=== PATIENT | male | born 1940 | race Caucasian/White ===

== ENCOUNTER 2021-01-14 14:50 | Emergency (ER) | payer MEDICARE ==
[2021-01-14 16:36] LABS: BASOPHIL 0.2 % (0-2); EOSINOPHIL 0 % (0-7); HCT 32.6 % (42.0-52.0); HGB 11.1 g/dl (13.2-18.0); MCH 32.4 pg (25.0-31.0); MPV 10.3 fL (6.0-9.5); NEUTROPHIL 61.3 % (41-80); NRBC 0; PLT 127 K/uL (150-400); RBC 3.43 M/uL (4.70-6.00); RDW 13.1 % (11.5-14.0); WBC 5.5 K/uL (4.0-10.5)
[2021-01-14 16:38] LABS: INR 1.11 (0.9-1.2); PROTHROMBIN TIME 13.7 SECONDS (11.8-13.4)
[2021-01-14 16:43] LABS: LYMPHOCYTE 36.3 % (15-48)
[2021-01-14 16:46] LABS: ALBUMIN 2.7 g/dL (3.4-5.0); BILIRUBIN - TOTAL 0.5 mg/dL (0.2-1.0); BUN/CREAT RATIO (CALC) 14.4 RATIO; CREATININE 0.97 mg/dL (0.67-1.17); GLOBULIN (CALCULATION) 4.1 g/dL; POTASSIUM 4.1 mmol/L (3.5-5.1); TOTAL PROTEIN 6.8 g/dL (6.4-8.2)
== END 2021-01-14 21:37 | disposition home or self-care (01) ==
LOC: FER 14:50
PROVIDERS: Physician Assistant
DX: U07.1 COVID-19 (principal)
CPT/HCPCS: 36415; 71045; 71046; 80053; 83880; 84484; 85025; 85610; 93005